=== PATIENT | male | born 1950 | race Caucasian/White ===

== ENCOUNTER 2017-03-11 17:50 | Emergency (ER) | payer OTHER, MEDICARE ==
[~2017-03-11] VITALS: Ht 180.3 cm; Wt 93.0 kg
[~2017-03-11 17:50] MED LIST: KEFLEX500 M1 PO; NEXIUM40 M1 PO; PAROXETINE HCL20 M1 PO; SIMVASTATIN20 M2 PO; VALSARTAN-HCTZ1 EAC1 PO
--- NOTE | 2017-03-11 18:15 | ED CARDIAC/CP/PALPITATIONS ---
History of Present Illness General Chief Complaint: Chest Pain Stated Complaint: CHEST PAIN Source: patient, old records Exam Limitations: no limitations Vital Signs & Intake/Output Vital Signs & Intake/Output Vital Signs Date Time Temp Pulse Resp B/P B/P Pulse O2 O2 Flow FiO2 Mean Ox Delivery Rate 03/11 2315 62 118/60 03/11 2203 97.1 68 18 113/61 97 Room Air 03/11 1951 97.5 56 18 128/69 94 Room Air 03/11 1759 99.3 70 20 160/77 98 Room Air Allergies Coded Allergies: NO KNOWN ALLERGIES (07/02/16) Reconcile Medications Cephalexin (Keflex) 500 MG CAPSULE 1 CAP PO TID infection Esomeprazole (Nexium) 40 MG CAPSULE.DR 1 CAP PO DAILY (Reported) Paroxetine HCl 20 MG TABLET 1 TAB PO DAILY MENTAL HEALTH (Reported) Simvastatin (Simvastatin*) 20 MG TABLET 1 TAB PO QPM (Reported) Valsartan/Hydrochlorothiazide (Valsartan-Hctz 160-12.5 MG Tab) 1 EACH TABLET 1 TAB PO DAILY (Reported) Triage Note: PT TO ED C/O CHEST PAIN X 5 HOURS. STATES FELT DIZZY THEN STARTED WITH C/P. DESCRIBES "HOT". PAIN DOES NOT RADIATE. NO SOB OR DIFF BREATHING NOTED. EKG DONE. PT TAKEN TO ROOM 2 PROVIDER KIESHA. Triage Nurses Notes Reviewed? yes HPI: Patient presents with intermittent lightheadedness and chest pain that starts in his left lower anterior chest and then radiates up to both shoulders and then down his left arm as well as into his back. The pain lasts approximately 15-20 minutes and then goes away. Lightheadedness also resolves once the chest pain. Patient has been seen by his shift leader as well as his special ed assistant for this and no findings have been found yet. Patient had a nuclear stress test is months ago he was told that everything was normal. Patient had a colonoscopy and endoscopy and was again told that everything was normal. Patient has had multiple symptoms over the past 4 days and so he comes in for evaluation. Patient has no current pain. At its worst the chest pain is 4 out of 10. There are no aggravating or mitigating factors. It radiates as noted above. Patient states that the pain occurs regardless of activity. The pain has occurred while at rest as well as what working and there are times that he is able to work and rest and not have the symptoms. (WARREN LOPEZ MD) Past History Travel History Traveled to [place] past 21 day No Medical History Any Pertinent Medical History? 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 No (WARREN LOPEZ MD) Review of Systems Review of Systems Constitutional: Reports: no symptoms. EENTM: Reports: no symptoms. Respiratory: Reports: no symptoms. Cardiovascular: Reports: see HPI, chest pain. GI: Reports: no symptoms. Genitourinary: Reports: no symptoms. Musculoskeletal: Reports: no symptoms. Skin: Reports: no symptoms. Neurological/Psychological: Reports: see HPI. Hematologic/Endocrine: Reports: no symptoms. Immunologic/Allergic: Reports: no symptoms. All Other Systems: Reviewed and Negative (WARREN LOPEZ MD) Physical Exam Physical Exam General Appearance: well developed/nourished, alert, awake, mild distress Head: atraumatic, normal appearance Eyes: Bilateral: PERRL, EOMI. Ears, Nose, Throat: normal pharynx, normal ENT inspection, hearing grossly normal Neck: normal inspection, supple, full range of motion Respiratory: normal breath sounds, chest non-tender, no respiratory distress, lungs clear Cardiovascular: regular rate/rhythm, normal peripheral pulses Gastrointestinal: normal bowel sounds, soft, non-tender, no organomegaly Back: normal inspection, normal range of motion Extremities: normal inspection, normal capillary refill, normal range of motion, no edema Neurologic/Psych: no motor/sensory deficits, awake, alert, oriented x 3, normal gait, normal mood/affect Skin: intact, normal color, warm/dry Lymphatic: no anterior cervical david Core Measures ACS in differential dx? Yes Severe Sepsis Present: No Septic Shock Present: No (WARREN LOPEZ MD) Progress Differential Diagnosis: AMI, aortic dissection, hyperventilation, musculoskeletal pain, myocarditis, pericarditis, pneumonia, pneumothorax, pulmonary embolism Plan of Care: Orders Procedure Date/time Status TROPONIN LEVEL 03/11 2235 Complete Telemetry/Pan Dumper 03/11 1814 Active TROPONIN LEVEL 03/11 1814 Complete COMPREHENSIVE METABOLIC PANEL 03/11 1814 Complete CBC WITHOUT DIFFERENTIAL 03/11 1814 Complete EKG 03/11 175 Active Laboratory Tests 03/11/17 2224: Troponin I < 0.01 03/11/17 1830: Anion Gap 11, Estimated GFR > 60, BUN/Creatinine Ratio 21.0, Glucose 91, Calcium 9.4, Total Bilirubin 0.9, AST 36, ALT 60, Alkaline Phosphatase 66, Troponin I < 0.01, Total Protein 7.5, Albumin 4.6, Globulin 2.9, Albumin/Globulin Ratio 1.6, CBC w Diff NO MAN DIFF REQ, RBC 4.59 L, MCV 87.3, MCH 30.3, RDW 13.0, MPV 7.5, Gran % 46.0, Lymphocytes % 39.8, Monocytes % 12.4 H, Eosinophils % 1.4, Basophils % 0.4, Absolute Granulocytes 2.0, Absolute Lymphocytes 1.7, Absolute Monocytes 0.5, Absolute Eosinophils 0.1, Absolute Basophils 0, PUBS MCHC 34.7 Diagnostic Imaging: Viewed by Me: Radiology Read. Discussed w/RAD: Radiology Read. Initial ED EKG: NSR, no ST T wave changes Prior EKG: unchanged Rhythm Strip: normal sinus rhythm Hand-Off Endorsed To: RENY EMERSON MD Endorsed Time: 1899 Pending: labs (WARREN LOPEZ MD) CXR Impression: no acute abnormality (RENY EMERSON MD) Departure Departure Condition: Stable Clinical Impression Primary Impression: Chest pain Qualifiers: Chest pain type: other chest pain Qualified Code: R07.89 - Other chest pain Departure Forms: Customer Survey General Discharge Information (WARREN LOPEZ MD) Departure Time of Disposition: 2305 Disposition: HOME OR SELF CARE Referrals: LISA WONG,ALEJANDRA GOODWIN MD,SCARLETT (PCP/Family) (RENY EMERSON MD) Critical Care Note Critical Care Note Critical Care Time: non-applicable (WARREN LOPEZ MD)
[2017-03-11 18:45] LABS: ABSOLUTE BASOPHIL COUNT 0 /CUMM (0.0-0.2); ABSOLUTE EOSINOPHIL COUNT 0.1 /CUMM (0.0-0.7); ABSOLUTE LYMPH COUNT 1.7 /CUMM (1.2-3.4); ABSOLUTE MONOCYTE COUNT 0.5 /CUMM (0.10-0.60); BASOPHIL % 0.4 % (0.0-2.0); EOSINOPHIL % 1.4 % (0-5); HEMATOCRIT 40.1 % (42-52); MEAN CORPUSCULAR HGB 30.3 PG (27.0-31.0); MEAN CORPUSCULAR HGB CONC 34.7 G/DL (33.0-37.0); MEAN CORPUSCULAR VOLUME 87.3 FL (80.0-94.0); MEAN PLATELET VOLUME 7.5 FL (7.4-10.4); PLATELET COUNT 154 /CUMM (130-400); RED BLOOD CELL CT 4.59 /CUMM (4.70-6.10); WHITE BLOOD CELL COUNT 4.3 /CUMM (4.8-10.8)
--- NOTE | 2017-03-11 18:59 | RADIOLOGY REPORT ---
EXAMINATION: XR PORTABLE CHEST CLINICAL INFORMATION: Chest pain. COMPARISON: Chest radiography 08/19/2013. TECHNIQUE: Portable frontal view of the chest was obtained. FINDINGS: No new significant abnormality is noted involving the heart, lungs, mediastinum, bony thorax or soft tissues. 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 IMPRESSION: No significant interval change compared to prior radiography. No acute pulmonary pathology demonstrated.
[2017-03-11 23:15] VITALS: BP 118/60
== END 2017-03-11 23:15 ==
LOC: ERH 17:50
PROVIDERS: Emergency Medicine
DX: R07.89 Other chest pain (principal)
CPT/HCPCS: 93005; 93010